=== PATIENT | male | born 1940 | race Hispanic/Latino ===

== ENCOUNTER 2017-01-10 20:16 | Emergency (ER) | payer SELFPAY | END 2017-01-10 20:19 | disposition left against medical advice (07) | LOC: ED 20:16 | DX: R07.9 Chest pain, unspecified (principal); Z53.21 Procedure and treatment not carried out due to patient leaving prior to being seen by health care provider ==

== ENCOUNTER 2017-05-18 01:00 | Emergency (ER) | payer MEDICARE | END 2017-05-18 01:07 | disposition left against medical advice (07) | LOC: ED 01:00 | DX: R04.0 Epistaxis (principal); Z53.21 Procedure and treatment not carried out due to patient leaving prior to being seen by health care provider ==